=== PATIENT | female | born 1960 | race Caucasian/White ===

== ENCOUNTER 2022-01-16 15:57 | Emergency (ER) | payer SELFPAY ==
[2022-01-16 16:24] VITALS: BP 153/73; PULSE 87; RESP 13; TEMP 36.6; O2SAT 95; BMI 22.3
--- NOTE | 2022-01-16 16:34 | W.ED.EXTPRO ---
HPI - Extremity Problem General: Chief complaint: Extremity Problem,Nontraumatic Stated complaint: Rt Leg Pain or swelling Time Seen by Provider: 01/16/22 16:34 Source: patient Mode of arrival: ambulatory Limitations: no limitations History of Present Illness: 61-year-old female presents emergency room with complaint of right leg pain anterior thigh and lateral thigh are hurting. 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 She denies any chest pain not had any swelling in lower extremity. No trauma no fall she also has some pain in her buttock radiating down into the other areas of concern. No saddle paresthesias no fecal incontinence or urinary retention MD Complaint: extremity pain Onset (ago): hour(s) Pain Consistency: intermittent Location: right and lower extremity (Proximal anterior lateral thigh) Radiation: none Relieving factors: nothing Exacerbating factors: nothing Associated symptoms: Deny arthralgias, chest pain, fever(s), myalgias, rash or short of breath Review of Systems Const: Denies: fever(s) or chills ENMT: Denies: throat pain, ear or mastoid pain, nasal discharge or nasal congestion Card: Denies: chest pain, palpitations, irregular heart rhythm or edema Resp: Denies: dyspnea, productive cough or non-productive cough GI: Denies: abdominal pain, nausea, vomiting, hematemesis, coffee ground emesis, diarrhea, constipation, bloating, hematochezia or melena : Denies: flank pain, difficulty voiding, dysuria, urinary frequency or urinary urgency Skin/Breast: Denies: rash PFSH ED PFSH: Medical History (Updated 01/24/22 @ 14:43 by Luis Manuel Galvan DO) No significant past medical history Surgical History (Updated 01/24/22 @ 14:43 by Luis Manuel Galvan DO) No pertinent past surgical history Physical Exam Const: COMMON NORMALS: no acute distress GENERAL APPEARANCE: cooperative and comfortable ORIENTATION/CONSCIOUSNESS: Yes awake, Yes oriented to person, Yes oriented to place and Yes oriented to time HENMT: COMMON NORMALS: normocephalic, atraumatic and hearing grossly normal bilaterally HEAD & SCALP: normocephalic and atraumatic Neck/C-Spine: COMMON NORMALS: no JVD Resp: COMMON NORMALS: normal respiratory effort, No retractions, No use of accessory muscles and clear to auscultation bilaterally AUSCULTATION: clear to auscultation bilaterally Cardio: COMMON NORMALS: no JVD, regular rate, regular rhythm and No murmurs present (Cardio) RATE: regular rate RHYTHM: regular rhythm GI: COMMON NORMALS: Soft to palpation and No hepatosplenomegaly present AUSCULTATION: Yes normoactive bowel sounds PALPATION: Yes Soft to palpation, No Tenderness to palpation present (GI), No Guarding due to palpation present (GI) and Yes No hepatosplenomegaly present Extremity: COMMON NORMALS: normal to inspection, capillary refill normal, no clubbing, cyanosis or edema, no calf tenderness and no pedal edema Neuro: SENSORIUM/ORIENTATION: Yes oriented to person, Yes oriented to place and Yes oriented to time Skin: COMMON NORMALS: no rashes or lesions noted GENERAL SKIN EXAM: no rashes or lesions noted Course Vital Signs: Vital signs: Vital Signs Temperature 97.9 F 01/16/22 16:24 Pulse Rate 87 01/16/22 16:24 Respiratory Rate 13 01/16/22 16:24 Blood Pressure 153/73 01/16/22 16:24 Pulse Oximetry 95 01/16/22 16:24 MDM - Extremity (Nontraumatic) Medical Decision Making Examination extremities no swelling or inflammation no sign of DVT.She is not tachycardic there is no real edema most of her discomfort is in the anterior thigh and not in an area of any deep venous structures. Seems to be more sciatica. We will treat as below. Follow-up as needed. Medical Records I reviewed the patient's medical records. Lab Data I reviewed the patient's lab results. Discharge Plan Discharge Patient Disposition: Home Clinical Impression: Sciatica Condition: Stable Prescriptions: New prednisone 20 mg tablet 20 mg PO TID Qty: 15 0RF Rx Instructions: 1 p.o. 3 times daily x3 days, 1 p.o. twice daily x2 days, 1 p.o. daily x2 days diclofenac sodium 75 mg tablet,delayed release (DR/EC) 75 mg PO Q12H PRN (Reason: pain) Qty: 20 0RF tizanidine 4 mg capsule 4 mg PO Q6H PRN (Reason: muscle spasticity) Qty: 20 0RF Rx Instructions: do not exceed 3 doses per 24 hrs Discharge Orders: Discharge ED (Routine); Ordered 01/16/22 Ordered By: Luis Manuel Galvan Discharge Diet: Usual diet Discharge Activity: Increase activity as tolerated Patient Instructions: Opioid Safety Activity Restrictions/Additional Instructions: Follow-up with your primary care doctor if not improving Coding Level of Care Code ED Process Development Associate for Marcos Marcano
== END 2022-01-16 17:14 | disposition home or self-care (01) ==
PROVIDERS: Emergency Provider Family Medicine
DX: M54.30 Sciatica, unspecified side (principal)
CPT/HCPCS: 99281

== ENCOUNTER 2024-09-07 15:53 | Emergency (ER) | payer SELFPAY ==
[2024-09-07 15:56] VITALS: BP 161/84; PULSE 91; RESP 18; TEMP 36.3; O2SAT 97; BMI 17.6
[2024-09-07 18:17] LABS: Basophils # 0.1 10^3/uL (0.0-0.1); Basophils % 0.8 %; Eosinophils # 0.1 10^3/uL (0.0-0.8); Lymphocytes % 13.8 %; Mean Corpuscular HGB Conc 33.2 g/dL (30-55); Mean Corpuscular Hemoglobin 31.1 pg (27-33); Mean Corpuscular Volume 93.8 fl (85-98); Mean Platelet Volume 10.4 fL (7.4-10.4); Monocytes # 0.8 10^3/uL (0.2-0.9); Monocytes % 5.3 %; Neutrophils # 11.46 10^3/uL (1.8-7.7); Neutrophils % 78.8 %; Nucleated Red Blood Cells % 0 %; Platelet Count 293 10^3/cmm (157-399); Red Blood Count 5.01 10^6/uL (3.85-5.65); Red Cell Distribution Width 13.2 % (12.1-15.1); White Blood Count 14.53 10^3/uL (3.29-11.43)
[2024-09-07 18:45] LABS: Alanine Aminotransferase 8 U/L (0-33); Albumin Level 4.7 g/dL (3.5-5.2); Alkaline Phosphatase 88 U/L (35-105); Anion Gap 16.5 (5-19); Aspartate Amino Transferase 17 U/L (0-32); Blood Urea Nitrogen 10 mg/dL (8-23); Calcium 9.9 mg/dL (8.5-10.5); Carbon Dioxide 27 mmol/L (22-29); Chloride 98 mmol/L (98-107); Creatinine Clr Calc Pharmacy 93.6444; Globulin 3.3 g/dL (1.3-4.6); Glomerular Filtration Rate 124.6 mL/min (90-130); Glucose 104 mg/dL (65-115); Lipase 32 U/L (13-60); Osmolality Calculated 285 mOsm/kg (285-295); Potassium 3.5 mmol/L (3.5-5.1); Sodium 138 mmol/L (136-145); Total Bilirubin 0.2 mg/dL (0.15-1.2)
[2024-09-07 19:12] VITALS: BP 129/105; PULSE 87; RESP 16; O2SAT 97
[2024-09-07] MEDS: meclizine 25 mg tablet 50 MG PO (19:16)
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
[2024-09-07] MEDS: ondansetron 4 MG Tablet PO (19:41)
== END 2024-09-07 20:51 | disposition home or self-care (01) ==
PROVIDERS: Emergency Medicine; Emergency Provider Physician Assistant; PCP Nurse Practitioner
DX: H81.10 Benign paroxysmal vertigo, unspecified ear (principal); Z72.0 Tobacco use
CPT/HCPCS: 36415; 80053; 83690; 85025; 99283; J8597; Q0162

== ENCOUNTER 2025-01-28 18:50 | Emergency (ER) | payer OTHER, SELFPAY ==
--- NOTE | 2025-01-28 18:55 | XRR_ITS ---
PROCEDURE INFORMATION: Exam: XR Right Ankle Exam date and time: 01/28/2025 7:16 PM Age: 64 years old Clinical indication: Ankle and foot; Right; RT ankle/lat foot pain; No known injury TECHNIQUE: Imaging protocol: Radiologic exam of the right ankle. Views: 3 or more views. COMPARISON: CR (LOW EXM, ) 01/28/2025 7:16 PM FINDINGS: Bones/joints: No acute fracture or dislocation. Symmetric ankle mortise. No tibiotalar joint effusion. Soft tissues: Unremarkable. PROCEDURE INFORMATION: Exam: XR Right Foot Exam date and time: 01/28/2025 7:16 PM Age: 64 years old Clinical indication: Ankle and foot; Right; RT ankle/lat foot pain; No known injury TECHNIQUE: Imaging protocol: Radiologic exam of the right foot. Views: 3 or more views. COMPARISON: CR XR ankle RT min 3V* [id number] 01/28/2025 7:16 PM FINDINGS: Bones/joints: No acute fracture or dislocation. Mild scattered midfoot and forefoot degenerative change. Soft tissues: Unremarkable. XR/XR ankle RT min 3V* [id number] IMPRESSION: No acute fracture or dislocation.
--- NOTE | 2025-01-28 18:55 | XRR_ITS ---
PROCEDURE INFORMATION: Exam: XR Right Ankle Exam date and time: 01/28/2025 7:16 PM Age: 64 years old Clinical indication: Ankle and foot; Right; RT ankle/lat foot pain; No known injury TECHNIQUE: Imaging protocol: Radiologic exam of the right ankle. Views: 3 or more views. COMPARISON: CR (LOW EXM, ) 01/28/2025 7:16 PM FINDINGS: Bones/joints: No acute fracture or dislocation. Symmetric ankle mortise. No tibiotalar joint effusion. Soft tissues: Unremarkable. PROCEDURE INFORMATION: Exam: XR Right Foot Exam date and time: 01/28/2025 7:16 PM Age: 64 years old Clinical indication: Ankle and foot; Right; RT ankle/lat foot pain; No known injury TECHNIQUE: Imaging protocol: Radiologic exam of the right foot. Views: 3 or more views. COMPARISON: CR XR ankle RT min 3V* [id number] 01/28/2025 7:16 PM FINDINGS: Bones/joints: No acute fracture or dislocation. Mild scattered midfoot and forefoot degenerative change. Soft tissues: Unremarkable. XR/XR foot RT min 3V* [id number] IMPRESSION: No acute fracture or dislocation.
[2025-01-28 19:11] VITALS: BP 79/53; PULSE 82; RESP 18; TEMP 36.6; O2SAT 98; BMI 19.3
[2025-01-28 19:41] VITALS: BP 113/66
[2025-01-28] MEDS: HYDROcodone-acetaminophen 5-325 mg Tablet 1 TAB PO (20:11)
--- NOTE | 2025-01-28 20:12 | W.ED.EXTPRO ---
Documented by User: BRUCE Verma 01/29/25 01:05 HPI - Extremity Problem General: Chief complaint: Extremity Injury, Lower Stated complaint: right foot injury Time Seen by Provider: 01/28/25 19:31 Source: patient Mode of arrival: ambulatory Limitations: no limitations History of Present Illness: Patient is a 64-year-old female who presents the emergency department planing of right foot pain. States that she was stepping onto a concrete slab up steps, and right foot started hurting. Does not report any twisting injury or trauma, just dates that it started hurting her, pain noted to be primarily to the dorsum of the right foot where she is noting associated swelling. Has not taken any medications for pain. No history of previous fractures or surgeries to the foot. No distal neurovascular symptoms reported. Has remained ambulatory. This occurred just prior to presentation. Does not report history of gout. MD Complaint: extremity pain Onset (ago): minute(s) Pain Consistency: constant Location: right and lower extremity (Foot) Radiation: none Exacerbating factors: weight bearing Associated symptoms: Reports no associated symptoms; Deny chest pain, fever(s) or rash Related Data Previous Rx's ?Medication ?Instructions ?Recorded citalopram 20 mg tablet (Celexa) 20 mg PO .at bedtime #30 tabs 08/24/24 meloxicam 15 mg tablet 15 mg PO DAILY #30 tabs 08/24/24 meclizine 50 mg tablet 50 mg PO DAILY PRN dizziness #20 09/07/24 tabs ondansetron 4 mg disintegrating 4 mg PO TID PRN nausea and 09/07/24 tablet vomiting #30 tabs albuterol sulfate 90 mcg/actuation 2 puff inhalation Q6H PRN 12/06/24 aerosol inhaler shortness of breath or wheezing #8.5 grams amoxicillin 875 mg-potassium 1 tab PO BID 7 days #14 tabs 12/06/24 clavulanate 125 mg tablet budesonide-formoterol HFA 160 1 inh inhalation BID #10.2 grams 12/06/24 mcg-4.5 mcg/actuation aerosol inhaler (Symbicort) prednisone 10 mg tablet 30 mg (3 x 10 mg) PO DAILY 5 days 12/06/24 #15 tabs Allergies Allergy/AdvReac Type Severity Reaction Status Date / Time No Known Allergies Allergy Verified 12/06/24 09:53 Review of Systems General: Reports: 10 or more systems reviewed and unremarkable except in HPI and below Const: Denies: fever(s) or chills Card: Denies: chest pain Resp: Denies: dyspnea or productive cough GI: Denies: abdominal pain, nausea, vomiting or diarrhea : Denies: flank pain Musc: Reports: extremity pain (Right foot) and extremity swelling (Right foot); Denies: neck pain, back pain, joint pain, joint swelling, joint redness, joint warmth, limited range of motion or muscle weakness Skin/Breast: Denies: rash Neuro: Denies: headache(s), numbness in extremities or weakness in extremities PFSH ED PFSH: Medical History Moderate cigarette smoker (10-19 per day) No natural teeth Surgical History History of facial surgery Burn face electric cord age 3 months. 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 [employer] Pets and animals: No Do you think of yourself as: Straight/Heterosexual Current gender identity: Female Physical Exam Const: COMMON NORMALS: no acute distress, patient oriented x3, no limitations, healthy appearing, alert and well nourished HENMT: COMMON NORMALS: normocephalic and atraumatic HEAD & SCALP: normocephalic and atraumatic Neck/C-Spine: COMMON NORMALS: full ROM, supple and no meningeal signs Resp: COMMON NORMALS: normal respiratory effort, No use of accessory muscles and clear to auscultation bilaterally AUSCULTATION: clear to auscultation bilaterally Cardio: COMMON NORMALS: regular rate and regular rhythm RATE: regular rate RHYTHM: regular rhythm Extremity: COMMON NORMALS: normal to inspection, full ROM, capillary refill normal, no joint enlargement and no clubbing, cyanosis or edema NARRATIVE EXTREMITY EXAM: No obvious swelling of the right foot. Easily reproducible tenderness to palpation to the dorsum of the right foot. No bruising or erythema. No obvious deformity. Neuro: COMMON NORMALS: patient oriented x3, moves all extremities, no focal motor deficits and no sensory deficits noted SENSORIUM/ORIENTATION: Yes alert MENINGEAL SIGNS: Yes no meningeal signs Skin: COMMON NORMALS: no rashes or lesions noted GENERAL SKIN EXAM: no rashes or lesions noted Course Vital Signs: Vital signs: Vital Signs Temperature 97.8 F 01/28/25 19:11 Pulse Rate 82 01/28/25 19:11 Respiratory Rate 18 01/28/25 19:11 Blood Pressure 113/66 01/28/25 19:41 Pulse Oximetry 98 01/28/25 19:11 Oxygen Delivery Me thod Room Air 01/28/25 19:11 MDM - Extremity (Nontraumatic) Medical Decision Making Patient presented for reports of right foot pain after awkwardly stepping. Exam overall was unremarkable, endorsed easy tenderness to palpation of the dorsum of the right foot. However there is no obvious deformity. Neurovascular status was intact. X-ray of the ankle and foot were both unremarkable, was treated with [place] here and upon recheck states pain was feeling much better. Suspect contusion versus sprain, will have her discharged and enact conservative therapy with encouraging to follow-up with regular doctor as needed. This patient was originally seen by Mr. Fran PA-C.? I agree with his history, evaluation, and treatment. Lab Data Radiology Impressions Ankle X-Ray 01/28/25 18:55 IMPRESSION: No acute fracture or dislocation. IMPRESSION: No acute fracture or dislocation. Foot X-Ray 01/28/25 18:55 IMPRESSION: No acute fracture or dislocation. IMPRESSION: No acute fracture or dislocation. All radiology interpretation(s) finalized by discharge Discharge Plan Discharge Patient Disposition: Home Clinical Impression: Contusion of foot, right Qualifiers: Encounter type: initial encounter Qualified Code(s): S90.31XA - Contusion of right foot, initial encounter Condition: Stable Prescriptions: No Action albuterol sulfate 90 mcg/actuation HFA aerosol inhaler 2 puff inhalation Q6H PRN (Reason: shortness of breath or wheezing) Qty: 8.5 0RF prednisone 10 mg tablet 30 mg PO DAILY 5 Days Qty: 15 0RF Rx Instructions: start this medicine tomorrow, Thursday amoxicillin-pot clavulanate 875-125 mg tablet 1 tab PO BID 7 Days Qty: 14 0RF budesonide-formoterol [Symbicort] 160-4.5 mcg/actuation HFA aerosol inhaler 1 inh inhalation BID Qty: 10.2 2RF citalopram [Celexa] 20 mg tablet 20 mg PO .at bedtime Qty: 30 0RF meloxicam 15 mg tablet 15 mg PO DAILY Qty: 30 0RF meclizine 50 mg tablet 50 mg PO DAILY PRN (Reason: dizziness) Qty: 20 0RF ondansetron 4 mg tablet,disintegrating 4 mg PO TID PRN (Reason: nausea and vomiting) Qty: 30 0RF Discharge Orders: Discharge ED (Routine); Ordered 01/28/25 Ordered By: Alec Peters Referrals: Archie Oleary, G[facility] [Primary Care Provider, Family Practice] Patient Instructions: Foot Contusion (ED) Activity Restrictions/Additional Instructions: Rest, ice, compression, and elevation. Alternate ibuprofen and Tylenol for pain. Weightbearing and range of motion exercises as tolerated. Follow-up with regular doctor. Print Language: Slovenian Coding Level of Care Code ED Advanced Practice Nurse for Chg Fwd Documented by User: Michele Jason DO 01/29/25 01:43 HPI - Extremity Problem General: Chief complaint: Extremity Injury, Lower Stated complaint: right foot injury Time Seen by Provider: 01/28/25 19:31 Related Data Previous Rx's ?Medication ?Instructions ?Recorded citalopram 20 mg tablet (Celexa) 20 mg PO .at bedtime #30 tabs 08/24/24 meloxicam 15 mg tablet 15 mg PO DAILY #30 tabs 08/24/24 meclizine 50 mg tablet 50 mg PO DAILY PRN dizziness #20 09/07/24 tabs ondansetron 4 mg disintegrating 4 mg PO TID PRN nausea and 09/07/24 tablet vomiting #30 tabs albuterol sulfate 90 mcg/actuation 2 puff inhalation Q6H PRN 12/06/24 aerosol inhaler shortness of breath or wheezing #8.5 grams amoxicillin 875 mg-potassium 1 tab PO BID 7 days #14 tabs 12/06/24 clavulanate 125 mg tablet budesonide-formoterol HFA 160 1 inh inhalation BID #10.2 grams 12/06/24 mcg-4.5 mcg/actuation aerosol inhaler (Symbicort) prednisone 10 mg tablet 30 mg (3 x 10 mg) PO DAILY 5 days 12/06/24 #15 tabs Allergies Allergy/AdvReac Type Severity Reaction Status Date / Time No Known Allergies Allergy Verified 12/06/24 09:53 [facility] ED PFSH: Medical History Moderate cigarette smoker (10-19 per day) No natural teeth Surgical History History of facial surgery Burn face electric cord age 3 months. 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 Fran PA-C.? I agree with his history, evaluation, and treatment. Lab Data Radiology Impressions Ankle X-Ray 01/28/25 18:55 IMPRESSION: No acute fracture or dislocation. IMPRESSION: No acute fracture or dislocation. Foot X-Ray 01/28/25 18:55 IMPRESSION: No acute fracture or dislocation. IMPRESSION: No acute fracture or dislocation. Discharge Plan Discharge Patient Disposition: Home Clinical Impression: Contusion of foot, right Qualifiers: Encounter type: initial encounter Qualified Code(s): S90.31XA - Contusion of right foot, initial encounter Condition: Stable Prescriptions: No Action albuterol sulfate 90 mcg/actuation HFA aerosol inhaler 2 puff inhalation Q6H PRN (Reason: shortness of breath or wheezing) Qty: 8.5 0RF prednisone 10 mg tablet 30 mg PO DAILY 5 Days Qty: 15 0RF Rx Instructions: start this medicine tomorrow, Thursday amoxicillin-pot clavulanate 875-125 mg tablet 1 tab PO BID 7 Days Qty: 14 0RF budesonide-formoterol [Symbicort] 160-4.5 mcg/actuation HFA aerosol inhaler 1 inh inhalation BID Qty: 10.2 2RF citalopram [Celexa] 20 mg tablet 20 mg PO .at bedtime Qty: 30 0RF meloxicam 15 mg tablet 15 mg PO DAILY Qty: 30 0RF meclizine 50 mg tablet 50 mg PO DAILY PRN (Reason: dizziness) Qty: 20 0RF ondansetron 4 mg tablet,disintegrating 4 mg PO TID PRN (Reason: nausea and vomiting) Qty: 30 0RF Discharge Orders: Discharge ED (Routine); Ordered 01/28/25 Ordered By: Alec Peters Referrals: Archie Oleary, [facility] [Primary Care Provider, [facility]] Patient Instructions: Foot Contusion (ED) Activity Restrictions/Additional Instructions: Rest, ice, compression, and elevation. Alternate ibuprofen and Tylenol for pain. Weightbearing and range of motion exercises as tolerated. Follow-up with regular doctor. Print Language: Slovenian Coding Level of Care Code ED Advanced Practice Nurse for Marcos Marcano
== END 2025-01-28 21:45 | disposition home or self-care (01) ==
PROVIDERS: Emergency Provider Physician Assistant; PCP Nurse Practitioner
DX: S90.31XA Contusion of right foot, initial encounter (principal); Z72.0 Tobacco use; X58.XXXA Exposure to other specified factors, initial encounter
CPT/HCPCS: 73610; 73630; 99283; J9999